=== PATIENT | female | born 1945 | race Caucasian/White ===

== ENCOUNTER 2021-08-03 13:23 | Emergency (ER) | payer MEDICARE, BC ==
[~2021-08-03] VITALS: Ht 157.5 cm; Wt 69.4 kg
[~2021-08-03 13:23] MED LIST: ACET500T68 PO; ASPI-630 PO; CALC500T31 PO; CEFD300C PO; DICL100G28 TP; DULO30CA2 PO; ESOM20CA PO; LOPE2TAB27 PO; MECL12.582 PO; MELO7.5T29 PO; RISP1TAB43 PO; TRAM50TA PO; TRAZ-120 PO
[2021-08-03 13:33] VITALS: BP 159/72
--- NOTE | 2021-08-03 14:45 | RAD ---
EXAM: CT HEAD WITHOUT IV CONTRAST CLINICAL HISTORY: Reason: fall, head injury / Spl. Instructions: / History: COMPARISON: None. TECHNIQUE: Routine CT of the head without contrast. Soft tissues and bone windows were reviewed. PQRS compliance statement - One or more of the following individualized dose reduction techniques wer e utilized for this study: 1. Automated exposure control 2. Adjustment of the mA and/or kV according to patient size 3. Use of iterative reconstruction technique FINDINGS: There is no evidence of hemorrhage, mass or extra-axial fluid collection. De La Torre-white differentiation is maintained with no evidence of edema. There is no mass effect or shift of the intracranial structures. The ventricles, basilar cisterns and cortical sulci are normal in size and configuration for the anyi ents stated age. The cerebellum and brainstem are unremarkable. The calvarium demonstrates no evidence of fracture or focal lesion. There is normal aeration of the visualized paranasal sinuses and mastoid air cells. The visualized portions of the orbits are normal. IMPRESSION: No evidence for acute intracranial process. EXAM: CT CERVICAL SPINE WITHOUT IV CONTRAST CLINICAL HISTORY: Reason: fall, head injury / Spl. Instructions: / History: COMPARISON: None available. TECHNIQUE: Helical CT of the cervical spine was performed. Axial, coronal and sagittal reformatted im ages were also performed. PQRS compliance statement - One or more of the following individualized dose reduction techniques wer e utilized for this study: 1. Automated exposure control 2. Adjustment of the mA and/or kV according to patient size 3. Use of iterative reconstruction technique FINDINGS: Vertebral body heights are preserved. No acute fracture. No spondylolisthesis. Straightening of the normal cervical lordosis. Severe C6-7 disc height loss. Moderate C5-6 disc height loss. Mild C4-5 disc height loss. Emphysematous changes are seen. 1.8 cm right thyroid nodule is seen. IMPRESSION: 1. No acute cervical spine fracture or subluxation. 2. 1.8 cm right thyroid nodule can be further assessed by thyroid ultrasound if not previously perfo rmed. 3. Degenerative changes of spine are seen. 4. Biapical emphysematous changes are seen. Electronically signed by: Remington Dwyer MD (08/03/2021 2:42 PM) [facility]
--- NOTE | 2021-08-03 15:09 | PHYS DOC ---
Past History Past Surgical History: Other Additional Past Surgical Histo: UNKNOWN SURGICAL HX Alcohol Use: None Adult General Chief Complaint Chief Complaint: MECHANICAL FALL HPI HPI The patient is a 76-year-old female with a history of bipolar disorder who presents for evaluation of injury sustained in a ground-level fall out of bed this morning. Patient states she rolled out of bed. Patient is alert and oriented x4, pleasantly and appropriately interactive and in no acute distress with appropriate vital signs. She moves all extremities equally. She states the back of her head hurts a little. Facility staff reported when they transferred her that they were concerned that she was having some hallucinations but patient states she has not been hallucinating. She denies suicidal ideation. She is calm, cooperative, goal-directed and pleasant in her int eractions with us. She denies any physical complaints at all aside from mild discomfort to the back of her head. She is in no acute distress and vital signs are appropriate here. Review of Systems Review of Systems A 12 point review of systems was completed and was negative except where noted in HPI above. Allergies Allergies Allergies Coded Allergies Type Severity Reaction Last Updated Verified Iodine and Iodide Containing Produc Allergy Unknown 07/21/21 Yes morphine Allergy Unknown 07/21/21 Yes poppyseed oil Allergy Unknown 07/21/21 Yes Physical Exam Physical Exam 76-year-old female appearing nontoxic and in no acute distress. Head is normocephalic and atraumatic. No hemotympanum bilaterally. No signs basilar fracture. Neck is supple and nontender. Oropharynx is moist. Lungs are clear to auscultation at all stations. There is a normal S1 and S2 without rubs or gallops and capillary refill is appropriate, less than 2 seconds globally. Abdomen is soft, nontender nondistended. Skin is warm and dry without cyanosis or clubbing. Psychiatrically, the patient demonstrates appropriate mood and affect and is alert. Evaluation of the extremities reveals BUEs and BLEs neurovascularly intact distally with strength 5 out of 5, sensation intact light touch in all nerve distributions, radial, DP and PT pulses 2+ and equal bilaterally, capillary refill less than 2 seconds, hands and feet warm and well- perfused. 1+ pitting peripheral edema, symmetric, to the bilateral lower extremities below the level of the mid shins. Patient states this is baseline for her. No calf tenderness or swelling bilaterally. Homans test is negative bilaterally. Current Patient Data Vital Signs Vital Signs Date Time Temp Pulse Resp B/P (MAP) Pulse Ox O2 Delivery O2 Flow Rate FiO2 08/03/21 13:33 98.3 100 16 159/72 (101) 92 Room Air EKG EKG [] Radiology/Procedures Radiology/Procedures EXAM: CT HEAD WITHOUT IV CONTRAST CLINICAL HISTORY: Reason: fall, head injury / Spl. Instructions: / History: COMPARISON: None. TECHNIQUE: Routine CT of the head without contrast. Soft tissues and bone windows were reviewed. PQRS compliance statement - One or more of the following individualized dose reduction techniques were utilized for this study: 1. Automated exposure control 2. Adjustment of the mA and/or kV according to patient size 3. Use of iterative reconstruction technique FINDINGS: There is no evidence of hemorrhage, mass or extra-axial fluid collection. De La Torre-white differentiation is maintained with no evidence of edema. There is no mass effect or shift of the intracranial structures. The ventricles, basilar cisterns and cortical sulci are normal in size and configuration for the patients stated age. The cerebellum and brainstem are unremarkable. The calvarium demonstrates no evidence of fracture or focal lesion. There is normal aeration of the visualized paranasal sinuses and mastoid air cells. The visualized portions of the orbits are normal. IMPRESSION: No evidence for acute intracranial process. EXAM: CT CERVICAL SPINE WITHOUT IV CONTRAST CLINICAL HISTORY: Reason: fall, head injury / Spl. Instructions: / History: COMPARISON: None available. TECHNIQUE: Helical CT of the cervical spine was performed. Axial, coronal and sagittal reformatted images were also performed. PQRS compliance statement - One or more of the following individualized dose reduction techniques were utilized for this study: 1. Automated exposure control 2. Adjustment of the mA and/or kV according to patient size 3. Use of iterative reconstruction technique FINDINGS: Vertebral body heights are preserved. No acute fracture. No spondylolisthesis. Straightening of the normal cervical lordosis. Severe C6-7 disc height loss. Moderate C5-6 disc height loss. Mild C4-5 disc height loss. Emphysematous changes are seen. 1.8 cm right thyroid nodule is seen. IMPRESSION: 1. No acute cervical spine fracture or subluxation. 2. 1.8 cm right thyroid nodule can be further assessed by thyroid ultrasound if not previously performed. 3. Degenerative changes of spine are seen. 4. Biapical emphysematous changes are seen. Electronically signed by: Remington Ambriz MD (08/03/2021 2:42 PM) [facility] DICTATED AND SIGNED BY: REMINGTON AMBRIZ MD DATE: 08/03/21 1437 CC: MARGARITA ALCARAZ MD; ASIA RESENDIZ MD ~MTH0 0 [] Heart Score C/O Chest Pain: No Risk Factors: Risk Factors: DM, Current or recent (<one month) smoker, HTN, HLP, family history of CAD, obesity. Risk Scores: Risk Factors: DM, Current or recent (<one month) smoker, HTN, HLP, family history of CAD, obesity. Course & Med Decision Making Course & Med Decision Making No evidence of emergency condition has been identified. Head and C-spine imaging are negative. Patient calm, cooperative and pleasant. Will discharge back to her facility at this time. She understands that if she feels worse instead of better or develops other new symptoms of concern that she should return to the emergency department immediately for reevaluation. All questions are answered. Dragon Disclaimer Dragon Disclaimer This electronic medical record was generated, in whole or in part, using a voice recognition dictation system. Departure Departure: Impression: Primary Impression: Fall from bed, initial encounter Additional Impressions: Contusion of occipital region of scalp Encounter for medical screening examination Disposition: HOME / SELF CARE / HOMELESS Condition: STABLE Referrals: ASIA RESENDIZ MD (PCP) Patient Instructions: Fall Prevention and Home Safety, [id number] Additional Instructions: Follow-up very closely with your primary care doctor in the office in the next 2 to 4 days for a reevaluation of your symptoms and a discussion of next best steps in care. Return to the emergency department right away for worsening symptoms of any kind or with any other new symptoms of concern. Problem Qualifiers Additional Impressions: Contusion of occipital region of scalp Encounter type: initial encounter Qualified Codes: S00.03XA - Contusion of scalp, initial encounter MARGARITA ALCARAZ MD Aug 03, 2021 15:09
== END 2021-08-03 15:34 | disposition home or self-care (01) ==
LOC: ER 13:23
DX: S00.03XA Contusion of scalp, initial encounter (principal); Z88.8 Allergy status to other drugs, medicaments and biological substances; W06.XXXA Fall from bed, initial encounter; Y93.89 Activity, other specified; Y92.89 Other specified places as the place of occurrence of the external cause; Y99.8 Other external cause status
CPT/HCPCS: 70450; 72125; 99284

== ENCOUNTER 2021-09-27 17:05 | Emergency (ER) | payer MEDICARE, BC ==
[~2021-09-27] VITALS: Ht 162.6 cm; Wt 68.2 kg
[2021-09-27] MEDS ORDERED: IV NORMAL SALINE 1,000ML 1,000 ML IV ONE (17:30)
--- NOTE | 2021-09-27 17:47 | PHYS DOC ---
Past History Past Medical History: Arthritis, Bipolar, COPD, Depression, GERD, High Cholesterol, Hypertension, UTI Additional Past Medical Histor: Insomnia, "Dizziness and Giddiness", restlessness and agitation Past Medical History Morbid obesity, unspecified pain, psychotic disorder with delusions, low back pain Limited secondary to altered mental status (JAKE FREITAS DO) Past Surgical History: Other Additional Past Surgical Histo: UNKNOWN SURGICAL HX Past Surgical History Limited secondary to altered mental status (JAKE FREITAS DO) Alcohol Use: None Social History Limited secondary to altered mental status (JAKE FREITAS DO) General Adult EDM: Chief Complaint: ALTERED MENTAL STATUS HPI: HPI: 76-year-old female presents with report of altered mental status from skilled nursing. EMS reports nursing staff noted started at noon today. EMS reports patient has been stating "people are trying to kidnap her ". People are also "Satan ". Reports wanting to try to climb out the windows. Patient reportedly has also had some hallucinations. Patient does have underlying "psychotic disorder with delusions "and bipolar disorder. No known fever. Patient also with history of urinary tract infections. Patient does have history of recent fall 2 days ago. Patient reports the nursing staff tried to stand her up and she told them that her legs "did not work ". Patient subsequently fell. Reports now "everything hurts ". History of present illness limited secondary to altered mental status. (JAKE FREITAS DO) Review of Systems: Review of Systems: Constitutional: Denies fever Respiratory: Denies shortness of breath Cardiovascular: Denies chest pain GI: Denies abdominal pain or vomiting Musculoskeletal: Reports pain "all over " Integument: Denies laceration Neurologic: Denies headache; reports altered mental status Review of systems limited secondary to altered mental status (JAKE FREITAS DO) Allergies: Allergies: Allergies Coded Allergies Type Severity Reaction Last Updated Verified Iodine and Iodide Containing Produc Allergy Unknown 07/21/21 Yes morphine Allergy Unknown 07/21/21 Yes poppyseed oil Allergy Unknown 07/21/21 Yes (JAKE FREITAS DO) Physical Exam: PE: Constitutional: Elderly, agitated, non-toxic appearance HENT: Normocephalic, healing ecchymosis noted to forehead Eyes: PERRL, EOMI, conjunctiva normal, no discharge, no nystagmus Neck: Normal range of motion, no midline tenderness, supple Lungs & Thorax: No respiratory distress, equal chest rise and fall Abdomen: Soft, no tenderness; pelvis stable and nontender Skin: Warm, dry, no erythema, healing ecchymosis noted to forehead Back: No midline tenderness, no CVA tenderness Extremities: No deformity, pain on ROM of bilateral hips, 2+ BLE edema Neurologic: Alert and oriented X 3, limited ability to lift bilateral legs, normal sensory function, cerebellar function intact Psychologic: Affect agitated, judgment abnormal, reports hallucinations (JAKE FREITAS DO) EKG: EKG: @1723 NSR at 91bpm, occasional PAC, NO ST elevation, QRS 82ms, QT/QTc 342/422ms, Q wave in III (JAKE FREITAS DO) Radiology/Procedures: Radiology/Procedures: [] (JAKE FREITAS DO) Radiology/Procedures: IMAGING REPORT Signed PATIENT: MELONIE CRAMER ACCOUNT: [id number] : 1945 LOCATION: ER AGE: 76 SEX: F EXAM STATUS: REG ER ORD. PHYSICIAN: JAKE FREITAS DO REASON: pain s/p fall, altered mental status PROCEDURE: CT HEAD AND CERVICAL SPINE WO CT HEAD AND C-SPINE WO dated 09/27/2021 6:08 PM. Comparison: 08/03/2021 Clinical Indication: Reason: pain s/p fall, altered mental status / Spl. Instructions: / History: HEAD AND NECK PAIN Technical factors: Contiguous 5 mm axial images of the head were obtained from the skullbase to the vertex. No contrast was administered. In addition, 3 mm axial images of the cervical spine were acquired with thin cut coronal and sagittal reconstructions. One or more of the following individualized dose reduction techniques were utilized for this examination: 1. Automated exposure control 2. Adjustment of the mA and/or kV according to patient size 3. Use of iterative reconstruction technique Findings head: Ventricles and sulci are mildly prominent for age. No midline shift or mass effect. Mild patchy low density in the deep/subcortical periventricular white matter. No hemorrhage or extra-axial collection. Posterior fossa and brainstem unremarkable. Visualized paranasal sinuses and mastoid air cells are clear. No apparent calvarial abnormality. IMPRESSION HEAD: 1. No evidence of acute intracranial hemorrhage or mass. 2. Mild chronic small vessel ischemic changes and atrophy. Findings cervical spine: Images were acquired from the skull base to T1. There is straightening of the normal cervical lordosis, otherwise sagittal alignment is anatomic. Vertebral body heights are maintained. No prevertebral soft tissue swelling. Posterior elements are intact. No fractures are identified. Mild endplate hypertrophic changes throughout. There is multilevel uncovertebral spurring and facet arthropathy. There is moderate disc space narrowing at C6- C7. No apparent focal disc herniation. The bony canal and foramen appear adequate. Visualized soft tissue structures are unremarkable. Low-density nodular focus at the right lobe thyroid gland measuring 1.4 cm, unchanged. Is also nodular density at the lower pole left thyroid gland, stable. Mild emphysema at the lung apices. IMPRESSION CERVICAL SPINE: 1. No evidence of fracture or malalignment. 2. Mild multilevel spondylosis. 3. Indeterminate bilateral thyroid nodules, unchanged. Electronically signed by: Jake Alves MD (09/27/2021 6:46 PM) [facility] DICTATED AND SIGNED BY: JAKE ALVSE MD DATE: 09/27/211842 CC: JOAQUIN DIGGS DO; ASIA RESENDIZ MD; JAKE FREITAS DO ~ IMAGING REPORT Signed PATIENT: MELONIE CRAMER ACCOUNT: [id number] : 1945 LOCATION: ER AGE: 76 SEX: F EXAM STATUS: REG ER ORD. PHYSICIAN: JAKE FREITAS DO REASON: pain s/p fall PROCEDURE: HIP BILATERAL WITH PELVIS Chest AP portable at 1825: Reason for examination: Fell with hip pain. Altered mental status. The heart size is normal. Mediastinum is unremarkable. Lung el are clear. No acute bony abnormalities are seen in the chest. IMPRESSION: No acute cardiopulmonary disease evident. Pelvis and bilateral hips 2 views each: Single view of the pelvis shows no evidence of fracture. The bone is demineralized. There is however severe degenerative change at the left hip with sclerosis at the femoral head and severe narrowing of the left hip joint. No acute fractures are seen at the proximal femur. The right hip shows no acute fracture or dislocation. The bone density is demineralized with no lytic or blastic lesions. Joint space is maintained. The left hip shows sclerosis and remodeling at the femoral head with severe narrowing of the joint space. No acute fracture or dislocation is seen. IMPRESSION: Sclerosis and remodeling at the left femoral head with severe narrowing of the joint space at the left hip. No acute bony abnormality in the pelvis or hips. Electronically signed by: Dimitri Roberts MD (09/27/2021 7:21 PM) [facility] AND SIGNED BY: DIMITRI ROBERTS MD DATE: 09/27/211914 CC: JOAQUIN DIGGS DO; ASIA RESENDIZ MD; JAKE FREITAS DO ~ (JOAQUIN DIGGS DO) Heart Score: C/O Chest Pain: N/A (JAKE FREITAS DO) Course & Med Decision Making: Course & Med Decision Making Pertinent Labs and Imaging studies reviewed. (See chart for details) Elderly patient presents with report of altered mental status from skilled nursing with report of hallucinations and delusions. Patient has pmh of "psychotic disorder with delusions ". Unclear what patient's baseline is. Patient alert and oriented to name, president, and place. Patient agitated and requesting that her legs be moved every 10 to 15 seconds. Patient very anxious when staff is not inside room with patient. Patient with history of recent fall with noted healing ecchymosis to scalp. CT head/cervical spine ordered. Chest x-ray and bilateral hip and pelvis x-rays also ordered. EKG stable. Labs obtained and pending. 1800-signout given to Dr. Diggs for further evaluation and final disposition. (JAKE FREITAS DO) Course & Med Decision Making This patient was initially seen by Dr. Freitas. Please see his note for details of initial presentation, HPI and H&P. I assumed care at 1800. The patient was awaiting laboratory exams and imaging studies. The patient has a known history of psychosis. She was apparently more agitated and behaving in a more psychotic manner than her usual. She lives at a alf facility. The patient is intermittently yelling at staff. She is not manifesting psychomotor agitation but rather only verbal agitation. She reports that she is "in pain all over." The patient had a reported history of remote trauma within the last several days. CT and plain film imaging studies are performed, no acute fractures, no acute life-threatening process or intracranial hemorrhage are note d on work-up. Findings of urinary tract infection are noted. I ordered a dose of IV Rocephin. She will be discharged back to her care facility with a prescription for oral cefdinir. The patient was given a total of 2 mg of IV Ativan to help with her agitation, this helped significantly. I spoke with the patient's son regarding the findings, differential diagnosis and plan of care. He is comfortable with her returning to her care facility as well. Return precautions are given. (JOAQUIN DIGGS DO) Dragon Disclaimer: Dragon Disclaimer: This electronic medical record was generated, in whole or in part, using a voice recognition dictation system. (JAKE FREITAS DO) Departure Departure: Impression: Primary Impression: Psychosis Qualified Codes: F29 - Unspecified psychosis not due to a substance or known physiological condition Additional Impression: Urinary tract infection Qualified Codes: N39.0 - Urinary tract infection, site not specified; R31.9 - Hematuria, unspecified Disposition: 03 ASSISTED FACILITY Condition: STABLE Referrals: ASIA RESENDIZ MD (PCP) Patient Instructions: Psychosis, Urinary Tract Infection Additional Instructions: Please take the full course of antibiotics. Your urine culture is pending, so if there is any need to change antibiotics, you will be notified, your facility will be notified, in about 48 hours. Return to the ER if you are acutely injured, sustained any trauma, if you develop uncontrolled vomiting, dehydratio n, severe abdominal pain, shortness of breath, or other concerns. Please follow-up with your doctors and caregivers at your alf facility. Scripts Cefdinir (CEFDINIR) 300 Mg Capsule 1 CAP PO BID for urinary tract infection for 7 Days, #14 CAP Prov: JOAQUIN DIGGS DO 09/27/21 JAKE FREITAS DO September 27, 2021 17:47 JOAQUIN DIGGS DO September 27, 2021 19:34
[2021-09-27 18:35] LABS: BASO % 1 % (0-3); EOS # 0.2 x10^3/uL (0.0-0.7); EOS % 3 % (0-3); HEMATOCRIT 36.3 % (36.0-47.0); HEMOGLOBIN 11.7 g/dL (12.0-15.5); LYMPH # 1.2 x10^3/uL (1.0-4.8); LYMPH % 16 % (24-48); MEAN CORPUSCULAR HEMOGLOBIN 27 pg (25-35); MEAN CORPUSCULAR HGB CONC 32 g/dL (31-37); MEAN CORPUSCULAR VOLUME 84 fL (79-100); MONO # 0.8 x10^3/uL (0.0-1.1); MONO % 10 % (0-9); NEUT # 5.4 x10^3uL (1.8-7.7); NEUT % 71 % (31-73); PLATELET COUNT 311 x10^3/uL (140-400); RED BLOOD COUNT 4.31 x10^6/uL (3.50-5.40); RED CELL DISTRIBUTION WIDTH 14.9 % (11.5-14.5); WHITE BLOOD COUNT 7.6 x10^3/uL (4.0-11.0)
--- NOTE | 2021-09-27 18:48 | RAD ---
CT HEAD AND C-SPINE WO dated 09/27/2021 6:08 PM. Comparison: 08/03/2021 Clinical Indication: Reason: pain s/p fall, altered mental status / Spl. Instructions: / History: HE AD AND NECK PAIN Technical factors: Contiguous 5 mm axial images of the head were obtained from the skullbase to the v ertex. No contrast was administered. In addition, 3 mm axial images of the cervical spine were acquir ed with thin cut coronal and sagittal reconstructions. One or more of the following individualized dose reduction techniques were utilized for this examinat ion: 1. Automated exposure control 2. Adjustment of the mA and/or kV according to patient size 3. Use of iterative reconstruction technique Findings head: Ventricles and sulci are mildly prominent for age. No midline shift or mass effect. Mild patchy low d ensity in the deep/subcortical periventricular white matter. No hemorrhage or extra-axial collection. Posterior fossa and brainstem unremarkable. Visualized paranasal sinuses and mastoid air cells are clear. No apparent calvarial abnormality. IMPRESSION HEAD: 1. No evidence of acute intracranial hemorrhage or mass. 2. Mild chronic small vessel ischemic changes and atrophy. Findings cervical spine: Images were acquired from the skull base to T1. There is straightening of the normal cervical lordosi s, otherwise sagittal alignment is anatomic. Vertebral body heights are maintained. No prevertebral s oft tissue swelling. Posterior elements are intact. No fractures are identified. Mild endplate hypertrophic changes throughout. There is multilevel uncovertebral spurring and facet a rthropathy. There is moderate disc space narrowing at C6-C7. No apparent focal disc herniation. The b agatha canal and foramen appear adequate. Visualized soft tissue structures are unremarkable. Low-density nodular focus at the right lobe thyro id gland measuring 1.4 cm, unchanged. Is also nodular density at the lower pole left thyroid gland, s table. Mild emphysema at the lung apices. IMPRESSION CERVICAL SPINE: 1. No evidence of fracture or malalignment. 2. Mild multilevel spondylosis. 3. Indeterminate bilateral thyroid nodules, unchanged. Electronically signed by: Jake Alves MD (09/27/2021 6:46 PM) [facility]
--- NOTE | 2021-09-27 19:24 | RAD ---
Chest AP portable at 1825: Reason for examination: Fell with hip pain. Altered mental status. The heart size is normal. Mediastinum is unremarkable. Lung el are clear. No acute bony abnormali ties are seen in the chest. IMPRESSION: No acute cardiopulmonary disease evident. Pelvis and bilateral hips 2 views each: Single view of the pelvis shows no evidence of fracture. The bone is demineralized. There is however severe degenerative change at the left hip with sclerosis at the femoral head and severe narrowing of the left hip joint. No acute fractures are seen at the proximal femur. The right hip shows no acute fracture or dislocation. The bone density is demineralized with no lytic or blastic lesions. Joint space is maintained. The left hip shows sclerosis and remodeling at the femoral head with severe narrowing of the joint sp purnima. No acute fracture or dislocation is seen. IMPRESSION: Sclerosis and remodeling at the left femoral head with severe narrowing of the joint space at the lef t hip. No acute bony abnormality in the pelvis or hips. Electronically signed by: Ivette Keene MD (09/27/2021 7:21 PM) [facility]
[2021-09-27 19:30] LABS: INFLUENZA A PATIENT NEGATIVE (NEGATIVE); INFLUENZA B PATIENT NEGATIVE (NEGATIVE)
[2021-09-27 19:33] LABS: ANION GAP 9 (6-14); BLOOD UREA NITROGEN 18 mg/dL (7-20); BUN/CREATININE RATIO 20 (6-20); CARBON DIOXIDE 25 mmol/L (21-32); CHLORIDE 109 mmol/L (98-107); CREATININE 0.9 mg/dL (0.6-1.0); GFR 61.2; GLUCOSE 81 mg/dL (70-99); POTASSIUM 3.7 mmol/L (3.5-5.1); SODIUM 143 mmol/L (136-145)
[2021-09-27 19:48] LABS: ALBUMIN 2.7 g/dL (3.4-5.0); ALBUMIN/GLOBULIN RATIO 0.9 (1.0-1.7); ALK PHOS 79 U/L (46-116); ALT (SGPT) 24 U/L (14-59); AST (SGOT) 18 U/L (15-37); MAGNESIUM 1.7 mg/dL (1.8-2.4); TOTAL BILIRUBIN 0.4 mg/dL (0.2-1.0); TOTAL PROTEIN 5.7 g/dL (6.4-8.2)
[2021-09-27 20:04] LABS: BACTERIA,URINE MOD /HPF (0-FEW); CLARITY,URINE CLOUDY; COLOR,URINE YELLOW; GLUCOSE,URINE NEG (NEG); NITRITE,URINE NEG (NEG); RBC,URINE OCC /HPF (0-2); SQUAMOUS EPITHELIAL CELL,UR MOD /LPF; UROBILINOGEN,URINE 0.2 mg/dL (0.2 mg/dL); WBC,URINE >40 /HPF (0-4)
[2021-09-27] MEDS ORDERED: CEFD300C PO (20:25)
[2021-09-27] MEDS ORDERED: IV NORMAL SALINE 50ML 50 ML ONE (20:44)
[2021-09-27] MEDS ORDERED: cefTRIAXone SODIUM 1 GM VIAL ONE (20:44)
--- NOTE | 2021-09-27 20:52 | EKG ---
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
[2021-09-27 21:01] VITALS: BP 164/73
== END 2021-09-27 21:21 ==
LOC: ER 17:05
DX: F29 Unspecified psychosis not due to a substance or known physiological condition (principal); M19.90 Unspecified osteoarthritis, unspecified site; F31.9 Bipolar disorder, unspecified; J44.9 Chronic obstructive pulmonary disease, unspecified; K21.9 Gastro-esophageal reflux disease without esophagitis; E78.00 Pure hypercholesterolemia, unspecified; I10 Essential (primary) hypertension; E66.01 Morbid (severe) obesity due to excess calories; Z20.822 Contact with and (suspected) exposure to COVID-19; Z87.440 Personal history of urinary (tract) infections; Z68.25 Body mass index [BMI] 25.0-25.9, adult; Z88.8 Allergy status to other drugs, medicaments and biological substances; Z88.5 Allergy status to narcotic agent
CPT/HCPCS: 70450; 71045; 72125; 73521; 80053; 81001; 82140; 82553; 83605; 83735; 83880; 84484; 85025; 87086; 87428; 93005; 96361; 96365; 96375; 96376; 99285; C9803; J0696; J2060; J7030; U0003

== ENCOUNTER 2021-09-28 04:29 | Emergency (ER) | payer BC, MEDICARE ==
[~2021-09-28] VITALS: Ht 162.6 cm; Wt 68.2 kg
--- NOTE | 2021-09-28 06:27 | RAD ---
INDICATION: Reason: fall / Spl. Instructions: / History: COMPARISON: September 27, 2021 TECHNIQUE: Axial CT images obtained through the head and cervical spine without intravenous contrast. Coronal a nd sagittal reformats processed of cervical spine. One or more of the following individualized dose reduction techniques were utilized for this examinat ion: 1. Automated exposure control; 2. Adjustment of the mA and/or kV according to patient size; 3 . Use of iterative reconstruction technique. FINDINGS: Head: No intracranial hemorrhage. No midline shift. Basal cisterns patents. Ventricles and sulci are globally prominent. No acute osseous abnormality. Orbits and paranasal sinuses unremarkable. Calcification at inner table of calvarium on the right near the vertex measuring 7 mm could be second ceci to osseous excrescence or calcified meningioma. Cervical: Degenerative changes of the spine with disc protrusions and osteophyte formation as well as uncoverte bral and facet hypertrophy. Mild grade 1 anterolisthesis at C5 on C6 again seen. Mild loss of height superior endplate of T2. This was partially seen on prior as well. IMPRESSION: * No acute intracranial hemorrhage. * Scattered foci of low density in the white matter. Nonspecific but can be seen with chronic small vessel ischemic disease * No acute fracture or dislocation of the cervical spine. * Degenerative changes of spine * Thyroid nodules again seen * Emphysematous changes at apices. Electronically signed by: Nolberto Gage MD (09/28/2021 6:24 AM) [id number]
--- NOTE | 2021-09-28 07:00 | PHYS DOC ---
Past History Past Medical History: Arthritis, Bipolar, COPD, Depression, GERD, High Cholesterol, Hypertension, UTI Additional Past Medical Histor: Insomnia, "Dizziness and Giddiness", restlessness and agitation Past Surgical History: Other Additional Past Surgical Histo: UNKNOWN SURGICAL HX Alcohol Use: None General Adult EDM: Chief Complaint: MECHANICAL FALL HPI: HPI: Patient is a 76-year-old female brought in by EMS from her assisted facility for reported fall. I saw this patient earlier in the shift for a previous history of fall and increased confusion and psychosis. I treated her for urinary tract infection. She was discharged back to her care facility without incident. Sometime this morning, the patient reports that she was transferring from the wheelchair to the bed, she fell backward and hit her head. No loss of consciousness was reported. The [employer] REP reportedly was with the patient and witnessed the fall. The patient reports that she "hurts all over." This is chronic for her. She denies chest pain, dyspnea, palpitations. She reports having a mild headache. Denies neck pain. She denies any other injury or trauma. She does have mild shortening of her left lower extremity, and when I ask if she has any left hip pain specifically, she reports "I hurt all over." This is her baseline mental status. She is actually behaving more appropriately at this time during this presentation than she was previously. She does admit that she remembers speaking to all of us and remembers her ED visit from a few hours ago. No acute mental status changes reported from EMS or by the assisted facility. Of note, the patient was given a dose of IV Rocephin prior to her discharge back to her care facility. Review of Systems: Review of Systems: Constitutional: Denies fever or chills Eyes: Denies change in visual acuity HENT: Denies nasal congestion or sore throat Respiratory: Denies cough or shortness of breath Cardiovascular: Denies chest pain or edema GI: Denies abdominal pain, nausea, vomiting, bloody stools or diarrhea : Denies dysuria Musculoskeletal: Denies back pain or joint pain Integument: Denies rash Neurologic: Denies headache, focal weakness or sensory changes Endocrine: Denies polyuria or polydipsia Lymphatic: Denies swollen glands Psychiatric: Denies depression or anxiety Allergies: Allergies: Allergies Coded Allergies Type Severity Reaction Last Updated Verified Iodine and Iodide Containing Produc Allergy Severe 09/28/21 Yes morphine Allergy Intermediate 09/28/21 Yes poppyseed oil Allergy Intermediate 09/28/21 Yes Physical Exam: PE: Constitutional: Well developed, well nourished, frail and chronically ill appearing. HENT: Normocephalic, atraumatic, bilateral external ears normal, oropharynx moist, no oral exudates, nose normal. TMs clear bilaterally. No otorrhea. No hemoptympanum. Eyes: PERRL, EOMI, conjunctiva normal, no discharge. No nystagmus. No periorbital edema, ecchymoses. Neck: Normal range of motion, no tenderness, supple, no stridor. No midline tenderness or step off. Trachea is midline. Cardiovascular:Heart rate regular rhythm, +2 radial and PT pulses bilaterally. Lungs & Thorax: Bilateral breath sounds clear to auscultation [] Abdomen: Bowel sounds normal, soft, no tenderness, no masses, no pulsatile masses. No CVA tenderness. No flank or abdominal ecchymoses. Skin: Warm, dry, no erythema, no rash. No laceration. No open wounds. Back: No tenderness, no CVA tenderness. No midline tenderness or step off. Extremities: No tenderness, no cyanosis, no clubbing, ROM intact, no edema. No calf tenderness. Pelvis is stable. Mild shortening of the left lower extremity. Full passive and active ROM in all directions of bilateral hips. Neurologic: Alert and oriented X 3, normal motor function, normal sensory function, no focal deficits noted. 5/5 motor strength all 4 extremities. CN 2- 12 grossly intact. Sensation grossly intact. Speech is fluent. Psychologic: Affect is somewhat bizarre, she is overall cooperative. Current Patient Data: Vital Signs: Vital Signs Date Time Temp Pulse Resp B/P (MAP) Pulse Ox O2 Delivery O2 Flow Rate FiO2 09/28/21 04:39 97.7 96 142/63 (89) 94 EKG: EKG: [] Radiology/Procedures: Radiology/Procedures: IMAGING REPORT Signed PATIENT: MELONIE CRAMER ACCOUNT: [id number] : 1945 LOCATION: ER AGE: 76 SEX: F EXAM STATUS: REG ER ORD. PHYSICIAN: JOAQUIN DIGGS DO REASON: fall PROCEDURE: CT HEAD AND CERVICAL SPINE WO INDICATION: Reason: fall / Spl. Instructions: / History: COMPARISON: September 27, 2021 TECHNIQUE: Axial CT images obtained through the head and cervical spine without intravenous contrast. Coronal and sagittal reformats processed of cervical spine. One or more of the following individualized dose reduction techniques were utilized for this examination: 1. Automated exposure control; 2. Adjustment of the mA and/or kV according to patient size; 3. Use of iterative reconstruction technique. FINDINGS: Head: No intracranial hemorrhage. No midline shift. Basal cisterns patents. Ventricles and sulci are globally prominent. No acute osseous abnormality. Orbits and paranasal sinuses unremarkable. Calcification at inner table of calvarium on the right near the vertex measuring 7 mm could be secondary to osseous excrescence or calcified meningioma. Cervical: Degenerative changes of the spine with disc protrusions and osteophyte formation as well as uncovertebral and facet hypertrophy. Mild grade 1 anterolisthesis at C5 on C6 again seen. Mild loss of height superior endplate of T2. This was partially seen on prior as well. IMPRESSION: * No acute intracranial hemorrhage. * Scattered foci of low density in the white matter. Nonspecific but can be seen with chronic small vessel ischemic disease * No acute fracture or dislocation of the cervical spine. * Degenerative changes of spine * Thyroid nodules again seen * Emphysematous changes at apices. Electronically signed by: Mau Parada MD (09/28/2021 6:24 AM) [id number] DICTATED AND SIGNED BY: MAU PARADA MD DATE: 09/28/21 0611 CC: JOAQUIN DGIGS DO; ASIA RESENDIZ MD ~ IMAGING REPORT Signed PATIENT: MELONIE CRAMER ACCOUNT: [id number] : 1945 LOCATION: ER AGE: 76 SEX: F EXAM STATUS: REG ER ORD. PHYSICIAN: JOAQUIN DIGGS DO REASON: fall PROCEDURE: HIP LEFT 2V WITH PELVIS Pelvis left hip HISTORY: Pain status post fall AP view of the pelvis as well as AP and frog-leg views left hip There is degenerative changes of the left hip with loss of joint space superiorly and with flattening of the superior surface of the femoral head. There is eburnation and subchondral cyst formation as well. There is no interruption of cortex to suggest fracture. There is mild degenerative changes of the right hip. IMPRESSION: 1. Severe degenerative changes of the left hip consistent with osteoarthrosis. 2. Flattening of the femoral head suggesting this may have started with avascular necrosis. Electronically signed by: Reed Jimenez III, MD (09/28/2021 7:32 AM) [facility] DICTATED AND SIGNED BY: REED JIMENEZ III, MD DATE: 09/28/21727 CC: JOAQUIN DIGGS DO; ASIA RESENDIZ MD ~ Heart Score: C/O Chest Pain: No Risk Factors: Risk Factors: DM, Current or recent (<one month) smoker, HTN, HLP, family history of CAD, obesity. Risk Scores: Score 0 - 3: 2.5% MACE over next 6 weeks - Discharge Home Score 4 - 6: 20.3% MACE over next 6 weeks - Admit for Clinical Observation Score 7 - 10: 72.7% MACE over next 6 weeks - Early Invasive Strategies Course & Med Decision Making: Course & Med Decision Making Pertinent Labs and Imaging studies reviewed. (See chart for details) The patient has been resting comfortably here. She manifests no evidence of distress. She has declined pain medication. Imaging studies are unremarkable for any acute life-threatening pathology. 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 No acute fracture is noted. I discussed the findings, differential diagnosis and plan of care with her. She will be discharged back to her assisted facility. Return precautions are given. Hira Disclaimer: Hira Disclaimer: This electronic medical record was generated, in whole or in part, using a voice recognition dictation system. Departure Departure: Impression: Primary Impression: Fall Qualified Codes: W19.XXXA - Unspecified fall, initial encounter Additional Impression: Head injury Qualified Codes: S09.90XA - Unspecified injury of head, initial encounter Referrals: ASIA RESENDIZ MD (PCP) Patient Instructions: Fall Prevention and Home Safety, Head Injury, Adult Additional Instructions: Your CAT scan is once again normal. No evidence of fracture or internal injury of your brain. There is no fracture of your hip or pelvis. You need to have a bed alarm to prevent you from falling out of bed. You require assistance with all activities, including transfers. Make sure you contact someone, call out for assistance. Return for any acute emergency medical condition, new injury or trauma, vomiting, chest pain, shortness of breath, abdominal pain or any other concerns. You should continue taking the antibiotics that you were given on your previous ER visit earlier today. JOAQUIN DIGGS DO September 28, 2021 07:00
--- NOTE | 2021-09-28 07:34 | RAD ---
Pelvis left hip HISTORY: Pain status post fall AP view of the pelvis as well as AP and frog-leg views left hip There is degenerative changes of the left hip with loss of joint space superiorly and with flattening of the superior surface of the femoral head. There is eburnation and subchondral cyst formation as w ell. There is no interruption of cortex to suggest fracture. There is mild degenerative changes of th e right hip. IMPRESSION: 1. Severe degenerative changes of the left hip consistent with osteoarthrosis. 2. Flattening of the femoral head suggesting this may have started with avascular necrosis. Electronically signed by: Rom Newton III, MD (09/28/2021 7:32 AM) [facility]
[2021-09-28 08:36] VITALS: BP 151/66
== END 2021-09-28 08:37 ==
LOC: ER 04:29
DX: S09.90XA Unspecified injury of head, initial encounter (principal); M25.552 Pain in left hip; M19.90 Unspecified osteoarthritis, unspecified site; F31.9 Bipolar disorder, unspecified; J44.9 Chronic obstructive pulmonary disease, unspecified; K21.9 Gastro-esophageal reflux disease without esophagitis; E78.00 Pure hypercholesterolemia, unspecified; I10 Essential (primary) hypertension; Z87.440 Personal history of urinary (tract) infections; Z88.8 Allergy status to other drugs, medicaments and biological substances; Z88.5 Allergy status to narcotic agent; W18.39XA Other fall on same level, initial encounter; Y93.89 Activity, other specified; Y92.89 Other specified places as the place of occurrence of the external cause; Y99.8 Other external cause status
CPT/HCPCS: 70450; 72125; 73502; 99284

== ENCOUNTER 2021-10-18 21:13 | Emergency (ER) | payer BC, MEDICARE ==
[~2021-10-18] VITALS: Ht 162.6 cm; Wt 68.2 kg
[2021-10-18 21:19] VITALS: BP 134/70
--- NOTE | 2021-10-18 21:28 | PHYS DOC ---
Past History Past Medical History: Arthritis, Bipolar, COPD, Dementia, Depression, GERD, High Cholesterol, Hypertension, UTI Additional Past Medical Histor: Insomnia, "Dizziness and Giddiness", restle ssness and agitation Past Surgical History: Other Additional Past Surgical Histo: UNKNOWN SURGICAL HX Alcohol Use: None General Adult EDM: Chief Complaint: MECHANICAL FALL HPI: HPI: Oh.. Oh.. I am cold.. . I hurt.. I hurt my head again... my leg... my shoulder ..they hurt...Oh.. Oh. .. Oh..".." Can I .. have ice chips.. I ve been here hours now.." Patient is a 76 year old female with hx of fall and head contusion. Pt reportedly fell out of wheel chair and hit Lt side forehead. Pt. also complaints of Lt shoulder, chest and Lt hip femur pain. Pt mechanism of fall is unknown- no call from [facility]. ] Patient's responsible green party and emergency contact is Junaid Cramer [phone]. Patient reportedly is DNR and to not be transferred from the [facility] approval by Neo Cramer. Patient to be given comfort care at the [facility]. Junaid oneill was contacted and advised that he she is not to have any x-rays or labs and to be sent back to [facility]. Patient on hospice care. Patient does have a history of advanced dementia, frequent falls, hypothyroidism, TIAs, generalized osteoarthritis, rota tor cuff tears, obstructive sleep apnea, hyperlipidemia, gallbladder disease but status post cholecystectomy, bilateral cataract extraction, bariatrics surgery for morbid obesity. Patient history of tobacco use quit 22 years. History of past marijuana use. Patient normally follows with Asia Cain. Does have a history of hallucinations. Patient apparently has history of lost 200 pounds after bariatric surgery 6 years ago. Patient and family history 1 brother age 63 from [place]. Father of [place] at age 63. Mother of [place] at age 63. Has 2 sisters that are younger and healthy. Review of Systems: Review of Systems: Constitutional: Denies fever or chills Eyes: Denies change in visual acuity HENT: Complains of head injury Respiratory: Denies cough or shortness of breath Cardiovascular: Denies chest pain or edema GI: Denies abdominal pain, nausea, vomiting, bloody stools or diarrhea : Denies dysuria Musculoskeletal: Complains of left shoulder pain and left femur pain Integument: Denies rash Neurologic: Complains of head contusion and headache. No new focal weakness or sensory changes Endocrine: Denies polyuria or polydipsia Lymphatic: Denies swollen glands Psychiatric: Denies depression or anxiety Family History: Family History: As per HPI Current Medications: Current Meds: See nursing for home meds Allergies: Allergies: Allergies Coded Allergies Type Severity Reaction Last Updated Verified Iodine and Iodide Containing Produc Allergy Severe 09/28/21 Yes morphine Allergy Intermediate 09/28/21 Yes poppyseed oil Allergy Intermediate 09/28/21 Yes Physical Exam: PE: Constitutional: Moderate acute distress, non-toxic appearance. [] HENT: Normocephalic, hematoma left frontal new. Hematoma right frontal old. Bi lateral external ears normal, oropharynx moist, no oral exudates, nose normal. [] Eyes: PERRLA, EOMI, conjunctiva normal, no discharge. [] Neck: Normal range of motion, no tenderness, supple, no stridor. Kyphosis. Cardiovascular: Tachycardia heart rate regular rhythm, no murmur. Bedside monitor shows a tachycardia with occasional PVCs. Lungs & Thorax: Bilateral breath equal apex with bibasilar crackles on auscultation [] Abdomen: Bowel sounds normal, soft, no tenderness, no masses, no pulsatile masses. Old surgery scar. Mild distention. Skin: Warm, dry, no erythema, no rash. [Poor turgor. Multiple old contusions. To be healing and different rates. Back: No tenderness, no CVA tenderness. [Kyphosis, scoliosis, Extremities: Complains of left arm and left femur enderness, no cyanosis, no clubbing, ROM i limited, no edema. Arthritic changes. No cording appreciated. Shoulder scars. Neurologic: Alert and oriented only to name., Moves all extremities on request, does have distal sensory,, no new focal deficits noted per [facility]dc Psychologic: Affect anxious judgement impaired, mood normal. [Advanced dementia EKG: EKG: EKG not completed per request by patient's son [] Radiology/Procedures: Radiology/Procedures: Technique: AP view of the chest was obtained at 10/18/2021 9:33 PM. Comparison: None. Findings: The cardiomediastinal silhouette is normal. The pulmonary vasculature is normal. The lungs and pleural margins are clear. Impression: No evidence of an acute cardiopulmonary process. End of impression Two-view left femur AP lateral views There is marked degenerative changes of the left hip with loss of joint space and flattening of the femoral head. The remaining visualized osseous structures are normal. 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 No acute findings. End of impression Three views left shoulder History: pain Internally and externally rotated AP of shoulder obtained, as well as "Y" view. The glenohumeral relationship is normal. The visualized osseous structures appear grossly intact. There is mild degenerative marginal spurring of the left AC joint. Impression: No acute findings. end impression Electronically signed by: Reed Jimenez III, MD (10/18/2021 10:57 PM) [facility] STATUS: PRE ER ORD. PHYSICIAN: LUCY WALL MD REASON: pain- fall PROCEDURE: PORTABLE CHEST 1V XR SHOULDER_LEFT 2+ VIEWS, XR CHEST 1V, XR FEMUR_LEFT 1 VIEW One view chest: Clinical History: Reason: pain- fall / Spl. Instructions: / History: Technique: AP view of the chest was obtained at 10/18/2021 9:33 PM. Comparison: None. Findings: The cardiomediastinal silhouette is normal. The pulmonary vasculature is normal. The lungs and pleural margins are clear. Impression: No evidence of an acute cardiopulmonary process. End of impression Two-view left femur AP lateral views There is marked degenerative changes of the left hip with loss of joint space and flattening of the femoral head. The remaining visualized osseous structures are normal. 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 No acute findings. End of impression Three views left shoulder History: pain Internally and externally rotated AP of shoulder obtained, as well as "Y" view. The glenohumeral relationship is normal. The visualized osseous structures appear grossly intact. There is mild degenerative marginal spurring of the left AC joint. Impression: No acute findings. end impression Electronically signed by: Reed Jimenez III, MD (10/18/2021 10:57 PM) [facility] DICTATED AND SIGNED BY: REED JIMENEZ III, MD DATE: 10/18/21 8971 CC: LUCY WALL MD; ASIA RESENDIZ MD ~ DICTATED AND SIGNED BY: REED JIMENEZ III, MD DATE: 10/18/212252 CC: LUCY WALL MD; ASIA RESENDIZ MD ~ : 1945LOCATION: ERAGE: 76 SEX: F EXAM STATUS: PRE ER ORD. PHYSICIAN: LUCY WALL MD REASON: head injury face plant PROCEDURE: CT HEAD AND CERVICAL SPINE WO Exam: CT head and cervical spine INDICATION: Head injury TECHNIQUE: Sequential axial images through the head and cervical spine were obtained without the administration of IV contrast. Exposure: One or more of the following in the visualized dose reduction techniques were utilized for this examination: 1. Automated exposure control 2. Adjustment of the MA and/or KV according to patient size 3. Use of iterative of reconstructive technique Comparisons: None FINDINGS: Head No focal parenchymal lesion or hemorrhage is identified. There is no midline shift or sulcal effacement. No acute vascular territory infarction is identified. Lentz-white distinction is preserved. The ventricular system is within normal limits without compression hydrocephalus. The basal cisterns are well maintained. Extra cranial soft tissue scalp contusion/hematoma overlying the left frontal region and left parietal region. The visualized portions of the paranasal sinuses and mastoid air cells are well-pneumatized. No acute fractures. Cervical spine: Vertebral body heights and alignment are well-maintained. Fracture to the cervical spine is not identified. No significant spondylotic change in the cervical spine. Visualized paraspinal soft tissues are unremarkable. IMPRESSION: 1. Extra cranial soft tissue scalp contusion/hematoma overlying the left frontal region and left parietal region without underlying osseous or intracranial abnormality. 2. Negative CT C-spine for acute traumatic injury Electronically signed by: Glenroy Finnegan MD (10/18/2021 10:55 PM) [facility] DICTATED AND SIGNED BY: GLENROY FINNEGAN MD DATE: 10/18/212249 CC: LUCY WALL MD; ASIA RESENDIZ MD ~ [[address] [address] IMAGING REPORT Signed PATIENT: MELONIE CRAMER ACCOUNT: [id number] : 1945 LOCATION: ER AGE: 76 SEX: F EXAM STATUS: PRE ER ORD. PHYSICIAN: LUCY WALL MD REASON: head injury face plant PROCEDURE: CT PELVIS WO CONTRAST CT pelvis without contrast HISTORY: Head injury, face plant Axial helical images of the pelvis were obtained without contrast and axial coronal sagittal reconstruction was performed. There is bilateral spondylolysis and grade 2 anterolisthesis of L5 on S1. There is marked degenerative changes of the left hip with loss of joint space a nd flattening of the femoral head. There is subchondral cyst formation seen in both sides of the joint. There is no free fluid. IMPRESSION: 1. Marked chronic degenerative changes left hip consistent with osteoarthrosis. This could be secondary to old avascular necrosis. 2. Bilateral spondylolysis and grade 2 anterolisthesis of L5 on S1. 3. No acute findings. End of impression PQRS Compliance Statement: One or more of the following individualized dose reduction techniques were utilized for this examination: 1. Automated exposure control 2. Adjustment of the mA and/or kV according to patient size 3. Use of iterative reconstruction technique Electronically signed by: Reed Jimenez III, MD (10/18/2021 11:04 PM) [facility] DICTATED AND SIGNED BY: REED JIMENEZ III, MD DATE: 10/18/212299 CC: LUCY WALL MD; ASIA RESENDIZ MD ~ ]One view chest: Clinical History: Reason: pain- fall / Spl. Instructions: / History: Technique: AP view of the chest was obtained at 10/18/2021 9:33 PM. Comparison: None. Findings: The cardiomediastinal silhouette is normal. The pulmonary vasculature is normal. The lungs and pleural margins are clear. Impression: No evidence of an acute cardiopulmonary process. End of impression Two-view left femur AP lateral views There is marked degenerative changes of the left hip with loss of joint space and flattening of the femoral head. The remaining visualized osseous structures are normal. 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 No acute findings. End of impression Three views left shoulder History: pain Internally and externally rotated AP of shoulder obtained, as well as "Y" view. The glenohumeral relationship is normal. The visualized osseous structures appear grossly intact. There is mild degenerative marginal spurring of the left AC joint. Impression: No acute findings. end impression Electronically signed by: Reed Jimenez III, MD (10/18/2021 10:57 PM) [facility] DICTATED AND SIGNED BY: REED JIMENEZ III, MD DATE: 10/18/212252 CC: LUCY WALL MD; ASIA RESENDIZ MD ~ Heart Score: C/O Chest Pain: N/A Risk Factors: Risk Factors: DM, Current or recent (<one month) smoker, HTN, HLP, family history of CAD, obesity. Risk Scores: Score 0 - 3: 2.5% MACE over next 6 weeks - Discharge Home Score 4 - 6: 20.3% MACE over next 6 weeks - Admit for Clinical Observation Score 7 - 10: 72.7% MACE over next 6 weeks - Early Invasive Strategies Course & Med Decision Making: Course & Med Decision Making Pertinent Labs and Imaging studies reviewed. (See chart for details) No report per correction. Son called and advised to sent pt. back to [place]. No further work up . Comfort care only,. Pt. did wound cleaned and Bactracin applied. Impression: 1. Hx. Fall out of Wheel Chair 2. Head Injury 3. Advanced Dementia 4. Comfort Care only. [] Dragon Disclaimer: Dragon Disclaimer: This electronic medical record was generated, in whole or in part, using a voice recognition dictation system. Departure Departure: Referrals: ASIA RESENDIZ MD (PCP) Dragon Disclaimer This chart was dictated in whole or in part using Voice Recognition software in a busy, high-work load, and often noisy Emergency Department environment. It may contain unintended and wholly unrecognized errors or omissions. Dragon Disclaimer This chart was dictated in whole or in part using Voice Recognition software in a busy, high-work load, and often noisy Emergency Department environment. It may contain unintended and wholly unrecognized errors or omissions. LUCY WALL MD October 18, 2021 21:27
[2021-10-18] MEDS ORDERED: IV RINGERS SOLUTION,LACTATED 1,000 ML IV SCH (21:45)
--- NOTE | 2021-10-18 22:57 | RAD ---
Exam: CT head and cervical spine INDICATION: Head injury TECHNIQUE: Sequential axial images through the head and cervical spine were obtained without the admi nistration of IV contrast. Exposure: One or more of the following in the visualized dose reduction techniques were utilized for this examination: 1. Automated exposure control 2. Adjustment of the MA and/or KV according to patient size 3. Use of iterative of reconstructive technique Comparisons: None FINDINGS: Head No focal parenchymal lesion or hemorrhage is identified. There is no midline shift or sulcal effaceme nt. No acute vascular territory infarction is identified. Lentz-white distinction is preserved. The ventricular system is within normal limits without compression hydrocephalus. The basal cisterns are well maintained. Extra cranial soft tissue scalp contusion/hematoma overlying the left frontal region and left parieta l region. The visualized portions of the paranasal sinuses and mastoid air cells are well-pneumatized . No acute fractures. Cervical spine: Vertebral body heights and alignment are well-maintained. Fracture to the cervical spine is not identified. No significant spondylotic change in the cervical spine. Visualized paraspinal soft tissues are unremarkable. IMPRESSION: 1. Extra cranial soft tissue scalp contusion/hematoma overlying the left frontal region and left par ietal region without underlying osseous or intracranial abnormality. 2. Negative CT C-spine for acute traumatic injury Electronically signed by: Glenroy Webb MD (10/18/2021 10:55 PM) [facility]
--- NOTE | 2021-10-18 22:59 | RAD ---
XR SHOULDER_LEFT 2+ VIEWS, XR CHEST 1V, XR FEMUR_LEFT 1 VIEW One view chest: Clinical History: Reason: pain- fall / Spl. Instructions: / History: Technique: AP view of the chest was obtained at 10/18/2021 9:33 PM. Comparison: None. Findings: The cardiomediastinal silhouette is normal. The pulmonary vasculature is normal. The lungs and pleura l margins are clear. Impression: No evidence of an acute cardiopulmonary process. End of impression Two-view left femur AP lateral views There is marked degenerative changes of the left hip with loss of joint space and flattening of the f emoral head. The remaining visualized osseous structures are normal. 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 No acute findings . End of impression Three views left shoulder History: pain Internally and externally rotated AP of shoulder obtained, as well as "Y" view. The glenohumeral relationship is normal. The visualized osseous structures appear grossly intact. The re is mild degenerative marginal spurring of the left AC joint. Impression: No acute findings. end impression Electronically signed by: Rom Newton III, MD (10/18/2021 10:57 PM) [facility]
--- NOTE | 2021-10-18 23:07 | RAD ---
CT pelvis without contrast HISTORY: Head injury, face plant Axial helical images of the pelvis were obtained without contrast and axial coronal sagittal reconstr uction was performed. There is bilateral spondylolysis and grade 2 anterolisthesis of L5 on S1. There is marked degenerative changes of the left hip with loss of joint space and flattening of the f emoral head. There is subchondral cyst formation seen in both sides of the joint. There is no free fl uid. IMPRESSION: 1. Marked chronic degenerative changes left hip consistent with osteoarthrosis. This could be seconda ry to old avascular necrosis. 2. Bilateral spondylolysis and grade 2 anterolisthesis of L5 on S1. 3. No acute findings. End of impression PQRS Compliance Statement: One or more of the following individualized dose reduction techniques were utilized for this examinat ion: 1. Automated exposure control 2. Adjustment of the mA and/or kV according to patient size 3. Use of iterative reconstruction technique Electronically signed by: Rom Newton III, MD (10/18/2021 11:04 PM) [facility]
== END 2021-10-18 23:02 | disposition home or self-care (01) ==
LOC: ER 21:13
DX: S00.03XA Contusion of scalp, initial encounter (principal); M25.512 Pain in left shoulder; M25.552 Pain in left hip; F03.90 Unspecified dementia, unspecified severity, without behavioral disturbance, psychotic disturbance, mood disturbance, and anxiety; E03.9 Hypothyroidism, unspecified; E78.5 Hyperlipidemia, unspecified; E66.01 Morbid (severe) obesity due to excess calories; M19.90 Unspecified osteoarthritis, unspecified site; F31.9 Bipolar disorder, unspecified; J44.9 Chronic obstructive pulmonary disease, unspecified; K21.9 Gastro-esophageal reflux disease without esophagitis; E78.00 Pure hypercholesterolemia, unspecified; I10 Essential (primary) hypertension; Z68.25 Body mass index [BMI] 25.0-25.9, adult; Z87.440 Personal history of urinary (tract) infections; Z88.5 Allergy status to narcotic agent; Z88.8 Allergy status to other drugs, medicaments and biological substances; Z91.041 Radiographic dye allergy status; W05.0XXA Fall from non-moving wheelchair, initial encounter; Y93.89 Activity, other specified; Y92.89 Other specified places as the place of occurrence of the external cause; Y99.8 Other external cause status
CPT/HCPCS: 70450; 71045; 72125; 72192; 73030; 73552; 99284